=== PATIENT | female | born 1990 | race Caucasian/White ===

== ENCOUNTER 2023-03-10 09:36 | Outpatient (AMB) | payer BC, SELFPAY ==
--- NOTE | 2023-03-10 10:04 | AM.OFFWIN_ITS ---
Intake Vital Signs 03/10/23 10:12 Height 5 ft 3 in Weight 188 lb BMI 33.3 BP 118/66 Blood Pressure Location Rt brachial Position Sitting Pulse 78 Pulse Source Pulse Oximeter Temp 98.8 F Temp Source Oral Pulse Oximetry (%) 98 Oxygen Delivery Method Room Air Intake Visit Reasons: EP cough, congestion, fever (masked) Intake Note: pt is here for c/o cough, congestion, fever 2x weeks Patient Tobacco Use Status: Never used Tobacco Allergies No Known Allergies [No Known Allergies*] Allergy (Verified 03/10/23 10:05) Medication List - Last Reconciled 03/10/23 by Amber Toure PA-C cetirizine (Zyrtec) 10 mg PO DAILY 28 days doxycycline hyclate 100 mg PO BID fluticasone propionate 50 mcg/actuation (Flonase Allergy Relief) 2 sprays intranasal DAILY 28 days ibuprofen 600 mg PO Q8H PRN levothyroxine 200 mcg PO DAILY sertraline (Zoloft) 50 mg PO DAILY Do you need a note to return to daycare/school/sports/work: Yes HPI HPI Comments History of Present Illness Details Presents to office with cough x 2 weeks Seen at another last week where COVID and flu negative Last night + fever onset 101.5 fever last night R sided rib pain worse with coughing Feels breathing is gurgling She was given Tessalon pearls without relief Has used dayquil, nyquil and mucinex without relief She took OTC antipyretic this am + congestion and some SOB with activity No CP or palpitations She denies ear pain or ST She said kids had cough but from her, otherwise no sick contacts No hx PNA PFSH Patient Tobacco Use Status: Never used Tobacco Review of Systems Const Denies body aches, Reports chills, Reports fever(s) and Reports weakness Eyes Denies eye pain ENT Denies ear discharge, Reports nasal congestion and Denies sore throat Card Denies rapid heart rate and Reports dyspnea Resp Reports cough and Reports dyspnea Neuro Reports weakness Physical Exam Vital Signs: Last Vital Signs Temp 98.8 F 03/10/23 10:12 Pulse 78 03/10/23 10:12 BP 118/66 03/10/23 10:12 Pulse Ox 98 03/10/23 10:12 Oxygen Delivery Method Room Air 03/10/23 10:12 BMI result Body Mass Index 33.3 General: Non-toxic, NAD. Speaking full sentences. Skin: Warm dry throughout Eye: EOMI HENT: Airway patent. Uvula midline. No pharyngeal erythema or edema. No FOURCHETTE SEWER. Bilateral canals clear. TM non-erythematous, non-bulging. No TM perforation or hemotympanum noted. Respiratory: No tachypnea. + crackles R base. Crackles RUL clear with cough. L jaylyn clear. Cardiac: RRR. No murmur MSK: Full ROM extremities. Neurology: A/O x 3.No aphasia or facial droop. Gait without abnormality Psych: Good mood and affect Assessment & Plan Assessment & Plan (1) Right lower lobe pneumonia: Code(s): J18.9 - Pneumonia, unspecified organism Qualifiers: Pneumonia type: due to unspecified organism Qualified Code(s): J18.9 - Pneumonia, unspecified organism Plan Patient seen and evaluated. Vital signs are stable. She has crackles noted on right lower face on exam. Will treat clinically for community-acquired pneumonia. Doxycycline with food, avoid alcohol as prescribed. Discussed Tylenol and Motrin alternating for fever control. Increase fluids. Follow up with primary care in 1 week to ensure resolution of symptoms have resolved. Emergency department with worsening symptoms, onset of chest pain shortness of breath. Pt gave verbal understanding and had no additional questions. Medications: New doxycycline hyclate 100 mg PO BID 14 caps 0RF J18.9 - Pneumonia, unspecified organism Coding Level of Care Code Est Pt Level 3 (62351) Diagnoses Pneumonia of right lower lobe due to infectious organism J18.9 Pneumonia type: due to unspecified organism
[2023-03-10 10:12] VITALS: BP 118/66; PULSE 78; TEMP 37.1; O2SAT 98; BMI 33.3
== END 2023-03-10 10:50 | disposition home or self-care (01) ==
PROVIDERS: Visit Provider Physician Assistant
DX: J18.9 Pneumonia, unspecified organism (principal)
CPT/HCPCS: 99213